=== PATIENT | male | born 1965 | race African-American/Black ===

== ENCOUNTER 2020-04-11 18:10 | Emergency (ER) | payer MEDICARE ==
[2020-04-11] MEDS ORDERED: Nitroglycerin 2% Ointment 1 INCH/1 GM Packet ONE (18:28)
--- NOTE | 2020-04-11 18:55 | RAD ---
EXAM: CHEST ONE VIEW HISTORY: Acute chest pain. COMPARISON: 05/16/2015 FINDINGS: The cardiac silhouette and pulmonary vasculature is within normal limits. The lungs are clear. Surgic al clips are again seen overlying the epigastric region. Chest is overall stable compared to prior exam. IMPRESSION: No acute cardiopulmonary process.
[2020-04-11 19:19] LABS: #Basophils 0.1 thou/uL (0.0-0.2); #Eosinphils 0.1 thou/uL (0.0-0.7); #Monocytes 0.9 thou/uL (0.11-0.59); #Neutrophils 4.9 thou/uL (1.40-6.50); %Basophils 0.9 % (0.0-1.0); %Eosinophils 0.8 % (0.0-10.0); %Monocytes 12.7 % (0.0-10.0); %Neutrophils 70.5 % (42.0-75.0); Hemoglobin 14.4 g/dL (14.0-18.0); Mean Corpuscular Hemoglobin 30.9 pg (27.0-31.0); Mean Corpuscular Volume 88.3 fL (78.0-98.0); Mean Platelet Volume 7.1 fL (7.4-10.4); Platelet Count 289 thou/uL (130-400); RBC Distribution Width 11.3 % (11.5-14.5); Red Blood Cell (RBC) Count 4.67 mill/uL (4.70-6.10); White Blood Cell (WBC) Count 6.9 thou/uL (4.8-10.8)
[2020-04-11 19:48] LABS: ALT (SGPT) 21 U/L (8-55); AST (SGOT) 17 U/L (5-34); Albumin 3.8 g/dL (3.5-5.0); Alkaline Phosphatase 56 U/L (40-110); Anion Gap 17 mmol/L (10-20); BUN (Urea Nitrogen) 8 mg/dL (8.4-25.7); Bilirubin, Total 0.7 mg/dL (0.2-1.2); CK (CPK) 134 U/L (30-200); Calc. Creatinine Clearance 0 mL/min (70-130); Calcium 8.1 mg/dL (7.8-10.44); Carbon Dioxide 19 mmol/L (22-29); Chloride 108 mmol/L (98-107); Estimated GFR-MDRD 72; Globulin 2.8 g/dL (2.4-3.5); Glucose 75 mg/dL (70-105); Lipase 11 U/L (8-78); Potassium 4.1 mmol/L (3.5-5.1); Protein, Total 6.6 g/dL (6.0-8.3); Sodium 140 mmol/L (136-145)
[2020-04-11 20:54] LABS: Troponin I 0.011 ng/mL (< 0.028)
--- NOTE | 2020-04-15 14:52 | EKG ---
Test Reason : Blood Pressure : / mmHG Vent. Rate : 078 BPM Atrial Rate : 078 BPM P-R Int : 108 ms QRS Dur : 068 ms QT Int : 420 ms P-R-T Axes : 052 063 070 degrees QTc Int : 478 ms Sinus rhythm with sinus arrhythmia with short WI Otherwise normal ECG Confirmed by FREDDY QIU, MILLA ([id number]), purchase request editor ESEQUIEL MARRERO ([id number]) on 04/15/2020 2:52:35 PM Referred By: Confirmed By:MILLA HAYES MD
--- NOTE | 2020-04-15 14:53 | EKG ---
Test Reason : Blood Pressure : / mmHG Vent. Rate : 068 BPM Atrial Rate : 068 BPM P-R Int : 110 ms QRS Dur : 068 ms QT Int : 426 ms P-R-T Axes : 018 020 039 degrees QTc Int : 452 ms Sinus rhythm with marked sinus arrhythmia with short DC Moderate voltage criteria for LVH, may be normal variant Borderline ECG #2 No change Confirmed by FREDDY QIU, MILLA ([id number]), photography editor ESEQUIEL MARRERO ([id number]) on 04/15/2020 2:52:51 PM Referred By: Confirmed By:MILLA HAYES MD
== END 2020-04-11 21:13 | disposition home or self-care (01) ==
LOC: ERS 18:10
DX: R07.9 Chest pain, unspecified (principal); M06.9 Rheumatoid arthritis, unspecified; I49.9 Cardiac arrhythmia, unspecified; I25.2 Old myocardial infarction; F41.9 Anxiety disorder, unspecified; F17.210 Nicotine dependence, cigarettes, uncomplicated; Z79.899 Other long term (current) drug therapy; Z86.73 Personal history of transient ischemic attack (TIA), and cerebral infarction without residual deficits
CPT/HCPCS: 36415; 71045; 80053; 82550; 83690; 83880; 84484; 85025; 93005